=== PATIENT | female | born 1970 | race Caucasian/White ===

== ENCOUNTER → 2020-04-29 | Outpatient (CLI) | payer BC, OTHER ==
[~2020-04-29] MED LIST: COLACE 100MG C100 MG PO; NORCO 7.5-3251 EACH PO; PRINIVIL10 MG PO; PROTONIX40 MG PO; SYNTHROID25 MCG PO; VITAMIN D1000 UNIT PO
== END ==
LOC: EXRD 10:36
DX: N28.1 Cyst of kidney, acquired (principal)
CPT/HCPCS: 76775

== ENCOUNTER → 2020-05-05 | Outpatient (CLI) | payer BC, OTHER | LOC: CT 07:55 | DX: N13.30 Unspecified hydronephrosis (principal); N28.1 Cyst of kidney, acquired | CPT/HCPCS: Q9967 ==

== ENCOUNTER → 2020-05-06 | Outpatient (CLI) | payer BC, OTHER | LOC: CT 13:16 | DX: R93.5 Abnormal findings on diagnostic imaging of other abdominal regions, including retroperitoneum (principal); R91.8 Other nonspecific abnormal finding of lung field | CPT/HCPCS: 71275; Q9967 ==

== ENCOUNTER → 2020-06-30 | Outpatient (CLI) | payer BC, OTHER | LOC: RAD 16:14 | DX: M25.561 Pain in right knee (principal); M25.462 Effusion, left knee; M17.12 Unilateral primary osteoarthritis, left knee | CPT/HCPCS: 73564 ==

== ENCOUNTER 2021-08-24 09:42 | Emergency (ER) | payer BC ==
[2021-08-24 10:47] LABS: HEMOGLOBIN 13.1 gm/dl (12.3-15.3); RED BLOOD COUNT 4.17 M/UL (4.00-5.10); WHITE BLOOD COUNT 5.7 K/UL (4.5-11.0)
[2021-08-24 11:31] LABS: BUN/CREATININE RATIO 17 (0-10)
== END 2021-08-24 14:19 | disposition home or self-care (01) ==
LOC: ER1 09:42
PROVIDERS: Student in an Organized Health Care Education/Training Program
DX: R07.89 Other chest pain (principal)
CPT/HCPCS: 71045; 80053; 82550; 82553; 84484; 85025; 93005; 99285

== ENCOUNTER → 2021-10-20 | Outpatient (CLI) | payer BC | LOC: KOH-I 10:55 | DX: M25.50 Pain in unspecified joint (principal); M17.0 Bilateral primary osteoarthritis of knee | CPT/HCPCS: 73562 ==

== ENCOUNTER → 2021-10-26 | Outpatient (CLI) | payer BC | LOC: KOH-I 14:00 | DX: N28.1 Cyst of kidney, acquired (principal) | CPT/HCPCS: 76775 ==